=== PATIENT | male | born 1995 | race Caucasian/White ===

== ENCOUNTER 2019-04-16 18:20 | Emergency (ER) | payer SELFPAY ==
[2019-04-16 18:22] VITALS: BP 143/67; PULSE 77; RESP 17; TEMP 36.5; O2SAT 100; BMI 20.6
--- NOTE | 2019-04-16 18:58 | ED.VIS.GEN ---
History of Present Illness Chief Complaint: Numb/Ting Informant: Patient Onset: Yesterday, Hours Timing: Continuous Current Severity: Moderate Maximum Severity: Moderate Narrative: The patient presents to the emergency department with right facial tingling and weakness. The patient states that yesterday, he noticed some tingling in his right face. He states he noticed that his smile was a little crooked. Today, he states his symptoms got worse. He has been unable to close his right eye. He describes some tingling across his face. He denies any headache. He denies any changes in vision, weakness, or other systemic symptoms. He has not been on any recent medication. He denies any recent illness. The patient is otherwise healthy. Prior similar symptoms: No Recent Illness/Hospitalization: No Past Medical History - Allergies and Home Meds Allergies/Adverse Reactions: Allergies No Known Allergies Allergy (Verified 04/16/19 18:21) Primary Care Physician: Anjel Toro DO [NON CLINICAL AFFILIATE] - Prior records reviewed: Yes Past Medical History: None Surgical History: no surgical history Smoking Status: Current some day smoker Review of Systems General: Denies: Chills, Fever, Sweats Eyes: Denies: Visual changes - bilaterally, Diplopia ENT: Denies: Rhinorrhea, Sore throat Cardiovascular: Denies: Chest pain, Palpitations Respiratory: Denies: Dyspnea, Cough, Dyspnea on exertion Gastrointestinal: Denies: Abdominal pain, Nausea, Vomiting, Diarrhea, Melena, Hematochezia Genitourinary: Denies: Dysuria, Hematuria, Frequency Musculoskeletal: Denies: Back pain, Extremity Pain Skin: Denies: Rash, Wounds Neurological: Denies: Headache, Weakness, Numbness Physical Exam Vital Signs/Narrative: Vital Signs Temp Pulse Resp BP Pulse Ox 04/16/19 18:22 97.7 F L 77 17 143/67 H 100 Inital Vital Signs reviewed: Yes General: Well nourished, Well developed, No Acute Distress Head: Normocephalic, Atraumatic Eyes: Perrl, EOMI ENT: Moist mucous membranes, No rhinorrhea Neck: Supple, Nontender Cardiovascular: Regular rate, Regular rhythm, No murmurs Respiratory: No distress, CTA bilaterally, Chest nontender Abdomen: Soft, Nontender, Nondistended, Normal bowel sounds Back: Nontender, Normal Inspection Extremities: Nontender, No edema Skin: Normal color, No rash Neurological: Alert, Oriented x3, Normal Strength, Normal Sensation, Right side facial droop, - - The patient does have a right facial droop with no forehead sparing. He is able to close the eye. There is no rash. Psychological: Normal affect, Normal Mood Diagnostic/Tx/Re-eval - Medical Decision Making The patient appears as if he has a Nowak's palsy. There is not forehead sparing. He has a normal neurologic exam otherwise. His symptoms started within the past 24 hours. He will be started on prednisone, antivirals, and eye lubrication. The patient was counseled concerning symptoms and reasons to return. I do want him to be reevaluated within the next 48 hours. I counseled him that if he cannot follow-up with his primary care to return here. He is comfortable with this plan of care. Impression 1. Nowak's palsy ED Disposition - Plan for ED Patient: Instructions: Nowak's Palsy Prescriptions: Petrolatum,White [Lacrilube] 1 applic RIGHT EYE TID #1 tube Prescription Printed Prednisone 10 mg PO DAILY #63 tab Prescription Printed Valacyclovir HCl [Valtrex] 1,000 mg PO TID #21 tab Prescription Printed Referrals: Anjel Toro DO [NON CLINICAL AFFILIATE] -
[2019-04-16] MEDS: Acyclovir 800 MG Tablet PO (19:19)
[2019-04-16] MEDS: predniSONE 20 MG Tablet 60 MG PO (19:19)
[2019-04-16] MEDS: Petrolatum,White 3.75GM OPTH.TUBE 1 APPLIC OPHTHALMIC (19:20)
== END 2019-04-16 19:25 | disposition home or self-care (01) ==
LOC: ED 19:21
PROVIDERS: Emergency Provider Emergency Medicine
DX: G51.0 Bell's palsy (principal); F17.200 Nicotine dependence, unspecified, uncomplicated
CPT/HCPCS: 99283